=== PATIENT | female | born 1995 | race Two or more races ===

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

== ENCOUNTER 2017-03-18 14:52 | Emergency (ER) | payer OTHER ==
[2017-03-18 15:07] VITALS: BP 111/63; PULSE 87; TEMP 98.7; BMI 23.9
--- NOTE | 2017-03-18 15:38 | PDOC ---
History of Present Illness - General Chief Complaint: Cold Symptoms Stated Complaint: HEADACHES, FEVER Time Seen by Provider: 03/18/17 15:22 - History of Present Illness Initial Comments: 03/18/17 15:32 CHIEF COMPLAINT: cold symptoms HISTORY OF PRESENT ILLNESS: 21 yo F with hx of asthma presents to [facility] with coughing x 4 days. Patient reports having runny nose, congestion, and fever (Tmax 101F). Patient reports feeling "pressure in my head" and states she took Nyquil one night with little relief. Patient reports "a little sore throat" but denies nausea, vomiting, diarrhea. PAST MEDICAL HISTORY: asthma FAMILY HISTORY: Denies SOCIAL HISTORY: Denies tobacco, alcohol, illicit drug use. SURGICAL HISTORY: Denies ALLERGIES: No known drug allergies REVIEW OF SYSTEMS General/Constitutional: Fever. Denies weakness. HEENT: A little sore throat, cough with "green stuff," runny nose, congestion. Denies change in vision. Cardiovascular: Denies chest pain or shortness of breath. Respiratory: productive cough x 4 days. Denies wheezing, or hemoptysis. Gastrointestinal: Denies nausea, vomiting, diarrhea. Denies rectal Musculoskeletal: Denies joint or muscle swelling or pain. Denies neck or back pain. Skin and breasts: Denies rash or easy bruising. PHYSICAL EXAM General Appearance: Well-appearing, appropriately dressed. No apparent distress. HEENT: Nasal congestion, rhinorrhea. Post nasal drip, left pharynx mildly erythematous. NO tonsilar swelling or exudate EOMI, PERRLA. No conjunctival pallor. No photophobia, scleral icterus. Neck: Supple. Trachea midline. No tenderness, rigidity, carotid bruit, stridor , lymphadenopathy, or thyromegaly. Respiratory/Chest: Lungs CTAB. No shortness of breath, chest tenderness, respiratory distress, accessory muscle use. No crackles, rales, rhonchi, stridor , wheezing, dullness Cardiovascular: RRR. S1, S2. Gastrointestinal/Abdominal: Normal bowel sounds. Abdomen soft, non-distended. No tenderness or rebound tenderness. No organomegaly, pulsatile mass, guarding , hernia, hepatomegaly, splenomegaly. Musculoskeletal/Extremities: Normal inspection. FROM of all extremities, normal capillary refill. Pelvis Stable. No CVA tenderness. No tenderness to extremities, pedal edema, swelling, erythema or deformity. Integumentary: Appropriate color, dry, warm. 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 Fully oriented, alert. Appropriate mood/affect. Motor strength 5/5. No appreciable EOM palsy, facial droop or sensory deficit. Past History - Past History Allergies/Adverse Reactions: Allergies No Known Allergies Allergy (Verified 03/18/17 14:59) Home Medications: Ambulatory Orders Azithromycin [Zithromax Tri-Ambrocio (3 DAYS) -] 500 mg PO DAILY #3 tablet 07/07/16 Ibuprofen [Motrin -] 600 mg PO QID PRN #28 tablet 07/07/16 Acetaminophen 500 mg PO Q6H PRN #28 capsule 03/18/17 Loratadine [Claritin] 10 mg PO DAILY #7 tablet 03/18/17 Pseudoephedrine HCl [Wal-Phed D] 120 mg PO BID #14 tablet.er 03/18/17 Immunization Status Up to Date: Yes - Social History Smoking History: No Smoking Status: Never smoked Number of Cigarettes Smoked Per Day: 0 Drug Use: none *Physical Exam - Vital Signs Last Vital Signs Temp Pulse Resp BP Pulse Ox 98.7 F 87 14 111/63 100 03/18/17 14:56 03/18/17 14:56 03/18/17 14:56 03/18/17 14:56 03/18/17 14:56 Medical Decision Making - Medical Decision Making 03/18/17 15:38 21 yo F with hx of asthma presents to [facility] with coughing x 4 days. -Flu swab *DC/Admit/Observation/Transfer Diagnosis at time of Disposition: URI, acute - Discharge Dispostion Disposition: HOME Condition at time of disposition: Stable Admit: No - Prescriptions Prescriptions: Acetaminophen 500 mg PO Q6H PRN #28 capsule PRN Reason: Headache Loratadine [Claritin] 10 mg PO DAILY #7 tablet Pseudoephedrine HCl [Wal-Phed D] 120 mg PO BID #14 tablet.er - Patient Instructions Printed Discharge Instructions: DI for Viral Upper Respiratory Infection -- Adult Additional Instructions: Please take medications as prescribed. Follow up with your primary care doctor within the next week. If you develop any fever that persists despite Tylenol or Motrin, or you develop any vomiting, diarrhea, or any new or worsening symptoms, please return to the ER. - Post Discharge Activity Forms/Work/School Notes: Back to Work
== END 2017-03-18 16:10 | disposition home or self-care (01) ==
LOC: JERFT 14:52 → JER 14:52 → JERFT 16:10
DX: J06.9 Acute upper respiratory infection, unspecified (principal); B97.89 Other viral agents as the cause of diseases classified elsewhere
CPT/HCPCS: 87804; 99281-25

== ENCOUNTER 2017-04-06 20:47 | Observation (INO) | payer OTHER ==
--- NOTE | 2017-04-06 21:15 | PDOC ---
History of Present Illness <Alisha Langston - Last Filed: 04/07/17 00:08> - General History Source: Patient Exam Limitations: No Limitations - History of Present Illness Initial Comments: 04/06/17 21:43 The patient is a 21 year old female with a significant past medical history of anemia, and asthma, who presents to the ED with a near syncopal episode. Patient states she was in the kitchen when she felt dizzy and slightly hit her head. Patient then walked to the couch and felt dizzy again. Patient denies losing consciousness. Patient denies headache, fever, chills, nausea, vomiting, diarrhea. Patient denies any pain or symptoms at the moment. Patient states she only ate chicken and rice today, with a glass of water and juice. <Mat Moncada - Last Filed: 04/07/17 01:57> - General Chief Complaint: Syncope/Near Syncope Stated Complaint: FATIGUE Time Seen by Provider: 04/06/17 21:11 Past History - Past Medical History Anemia: Yes Asthma: Yes - Reproductive History (#): 0 Para: 0 Therapeutic (s) & number: No - Immunization History Immunization Up to Date: Yes - Suicide/Smoking/Psychosocial Hx Smoking Status: No Smoking History: Never smoked Have you smoked in the past 12 months: No Number of Cigarettes Smoked Daily: 0 Information on smoking cessation initiated: No Hx Alcohol Use: No Drug/Substance Use Hx: No Substance Use Type: None <Alisha Langston - Last Filed: 04/07/17 00:08> <Mat Moncada - Last Filed: 04/07/17 01:57> - Past Medical History Allergies/Adverse Reactions: Allergies Allergy/AdvReac Type Severity Reaction Status Date / Time No Known Allergies Allergy Verified 03/18/17 14:59 Home Medications: Ambulatory Orders Unobtainable [Unobtainable] 04/06/17 Review of Systems - Review of Systems Able to Perform ROS?: Yes Comments:: 04/06/17 21:43 GENERAL/CONSTITUTIONAL: No fever or chills. No weakness. HEAD, EYES, EARS, NOSE AND THROAT: No change in vision. No ear pain or discharge. No sore throat. CARDIOVASCULAR: No chest pain or shortness of breath. RESPIRATORY: No cough, wheezing, or hemoptysis. GASTROINTESTINAL: No nausea, vomiting, diarrhea or constipation. GENITOURINARY: No dysuria, frequency, or change in urination. MUSCULOSKELETAL: No joint or muscle swelling or pain. No neck or back pain. SKIN: No rash NEUROLOGIC: + dizziness. No headache, vertigo, loss of consciousness, or change in strength/sensation. ENDOCRINE: No increased thirst. No abnormal weight change. HEMATOLOGIC/LYMPHATIC: No anemia, easy bleeding, or history of blood clots. ALLERGIC/IMMUNOLOGIC: No hives or skin allergy. <Mat Moncada - Last Filed: 04/07/17 01:57> *Physical Exam - Vital Signs Last Vital Signs Temp Pulse Resp BP Pulse Ox 98.8 F 108 H 20 101/59 98 04/06/17 21:05 04/06/17 21:05 04/06/17 21:05 04/06/17 21:05 04/06/17 21:05 <Alisha Langston - Last Filed: 04/07/17 00:08> - Vital Signs Last Vital Signs Temp Pulse Resp BP Pulse Ox 98.8 F 108 H 20 101/59 98 04/06/17 21:05 04/06/17 21:05 04/06/17 21:05 04/06/17 21:05 04/06/17 21:05 - Physical Exam Comments: 04/06/17 21:44 GENERAL: Awake, alert, and fully oriented, in no acute distress HEAD: No signs of trauma EYES: PERRLA, EOMI, sclera anicteric, conjunctiva clear ENT: Auricles normal inspection, hearing grossly normal, nares patent, oropharynx clear without exudates. Moist mucosa NECK: Normal ROM, supple, no lymphadenopathy, JVD, or masses LUNGS: Breath sounds equal, clear to auscultation bilaterally. No wheezes, and no crackles HEART: Regular rate and rhythm, normal S1 and S2, no murmurs, rubs or gallops ABDOMEN: Soft, nontender, normoactive bowel sounds. No guarding, no rebound. No masses EXTREMITIES: Normal range of motion, no edema. No clubbing or cyanosis. No cords, erythema, or tenderness NEUROLOGICAL: Cranial nerves II through XII grossly intact. Normal speech, normal gait SKIN: Warm, Dry, normal turgor, no rashes or lesions noted. <Mat Moncada - Last Filed: 04/07/17 01:57> Heart Score/ECG Review - ECG Intrepretation Comment:: 04/07/17 01:57 Normal Sinus Rhythm, 86 bpm. T wave abnormality, consider anterior ischemia Abnormal ECG. <Mat Moncada - Last Filed: 04/07/17 01:57> ED Treatment Course - LABORATORY CBC & Chemistry Diagram: 04/06/17 21:50 04/06/17 21:50 <Alisha Langston - Last Filed: 04/07/17 00:08> - LABORATORY CBC & Chemistry Diagram: 04/06/17 21:50 04/06/17 21:50 - ADDITIONAL ORDERS Additional order review: Laboratory Results 04/06/17 21:30 Urine HCG, Qual Negative <Mat Moncada - Last Filed: 04/07/17 01:57> Medical Decision Making - Medical Decision Making 04/06/17 23:43 Pt comes with syncope x 2 today; Once in the kitceh and once in the living room ; Both times she fell and hit her head. Abnormal EKG RBBB 04/07/17 00:08 Pt's EKG findings are old; read by agency legal counsel as abnormal; however pt has never been admitted for further workup with holter; cardiac echo; or serial enzymes and telemetry observation. Pt requires workup now, as she fell 2 x and hit her head - though she recalls events and doesn't think that she lost consciousness, but she states that she was startled and in shock - with a concurrent abnormal EKG tracing. <Alisha Langston - Last Filed: 04/07/17 00:08> *DC/Admit/Observation/Transfer - Discharge Dispostion Admit: Yes <Alisha Langston - Last Filed: 04/07/17 00:08> - Attestations Scribe Attestion: 04/06/17 21:44 Documentation prepared by Mat Moncada, acting as medical records director for Alisha Langston MD. <Mat Moncada - Last Filed: 04/07/17 01:57> Diagnosis at time of Disposition: Syncope, Abnormal EKG, RBBB - Discharge Dispostion Condition at time of disposition: Guarded
[2017-04-06] MEDS ORDERED: SODIUM CHLORIDE 0.9% 500 ML INFUS.BAG IV ONE (21:38)
[2017-04-06 22:01] LABS: BASOPHIL 0.1 % (0-2.0); EOSINOPHIL 0.2 % (0-4.5); MCH 32.6 pg (25.7-33.7); MCHC 34.7 g/dl (32.0-36.0); NEUTROPHILS 85.4 % (42.8-82.8); PLATELET COUNT 246 K/MM3 (134-434); RDW 13.2 % (11.6-15.6); WHITE BLOOD COUNT 9.6 K/mm3 (4.0-10.0)
[2017-04-06 22:25] LABS: ALBUMIN 3.9 g/dl (3.4-5.0); ANION GAP 11 (8-16); BILIRUBIN,TOTAL 0.5 mg/dL (0.2-1.0); CALCIUM 8.8 mg/dL (8.5-10.1); CO2 25 mmol/L (21-32); CREATININE 0.8 mg/dL (0.55-1.02); GLUCOSE,RANDOM 127 mg/dL (74-106); SGPT/ALT 18 U/L (12-78); TOT PROT 7.7 g/dl (6.4-8.2)
[2017-04-06 22:28] LABS: CPK 126 IU/L (26-192); TROPONIN I < 0.02 ng/ml (0.00-0.05)
[2017-04-06 22:30] LABS: ALK PHOS 36 U/L (45-117)
[2017-04-06 22:31] LABS: SGOT/AST 16 U/L (15-37)
--- NOTE | 2017-04-07 00:06 | PN ---
Teaching Attending Note Name of Resident: Bjorn Valverde ATTENDING PHYSICIAN STATEMENT I saw and evaluated the patient. I reviewed the resident's note and discussed the case with the resident. I agree with the resident's findings and plan as documented. SUBJECTIVE: 21 yo F with pmhx of yeni who presents s/p loss of conscioussness, States she fell today and lost conciousness. Denies any lightheadedness, dizziness, or headache. NO chest pain, pressure or shortness of breath. States she has not been eating and drinking much today. States she may have hit her head, above her left eye brow, but denies any visual changes or headaches. States she lost concioussness twice, but does not know for how long. States she had no shaking and did not lose bowel or bladder function. Did not bite her tongue OBJECTIVE: Physical Exam: Vital Signs Period Temp Pulse Resp BP Sys/Bolden Pulse Ox Last 24 Hr 98.8 F 91-108 14-20 101-103/59-66 98-100 GEN: NAD, young female, resting in bed, AA0X3 HEENT: NCAT, PERRL, Throat without erythema or exudates CARD: RRR S1, S2 RESP: CTAB ABD: BSx4, NTD to palpation EXT: - C/C/E CBCD WBC 9.6 K/mm3 (4.0-10.0) 04/06/17 21:50 RBC 3.99 M/mm3 (3.60-5.2) 04/06/17 21:50 Hgb 13.0 GM/dL (10.7-15.3) D 04/06/17 21:50 Hct 37.5 % (32.4-45.2) 04/06/17 21:50 MCV 94.0 fl (80-96) 04/06/17 21:50 MCHC 34.7 g/dl (32.0-36.0) 04/06/17 21:50 RDW 13.2 % (11.6-15.6) 04/06/17 21:50 Plt Count 246 K/MM3 (134-434) 04/06/17 21:50 MPV 10.0 fl (7.5-11.1) 04/06/17 21:50 CMP Sodium 140 mmol/L (136-145) 04/06/17 21:50 Potassium 4.0 mmol/L (3.5-5.1) 04/06/17 21:50 Chloride 104 mmol/L (98-107) 04/06/17 21:50 Carbon Dioxide 25 mmol/L (21-32) 04/06/17 21:50 Anion Gap 11 (8-16) 04/06/17 21:50 BUN 14 mg/dL (7-18) D 04/06/17 21:50 Creatinine 0.8 mg/dL (0.55-1.02) 04/06/17 21:50 Creat Clearance w eGFR > 60 (>60) 04/06/17 21:50 Random Glucose 127 mg/dL (74-106) H D 04/06/17 21:50 Calcium 8.8 mg/dL (8.5-10.1) 04/06/17 21:50 Total Bilirubin 0.5 mg/dL (0.2-1.0) D 04/06/17 21:50 AST 16 U/L (15-37) D 04/06/17 21:50 ALT 18 U/L (12-78) 04/06/17 21:50 Alkaline Phosphatase 36 U/L (45-117) L D 04/06/17 21:50 Total Protein 7.7 g/dl (6.4-8.2) 04/06/17 21:50 Albumin 3.9 g/dl (3.4-5.0) 04/06/17 21:50 CARDIAC ENZYMES Creatine Kinase 126 IU/L (26-192) 04/06/17 22:05 Troponin I < 0.02 ng/ml (0.00-0.05) 04/06/17 22:05 EKGL TWI anterior leads, present on prior EKG 12/11 ASSESSMENT AND PLAN: 21 F with pmhx. of asthma who presents post loss of concioussness, being admitted for syncope 1.) Loss of Concioussness DDX: Vasovagal - STAT ortostatics - IVF 2.) DVT Ppx: - Low risk- SCDs Place in Obs-Tele
[2017-04-07] MEDS ORDERED: SODIUM CHLORIDE 1,000 ML IV SCH (01:00)
--- NOTE | 2017-04-07 01:14 | HP ---
CHIEF COMPLAINT: fainting spell PCP: pt sees an [facility] S[facility] DRIVER at [address] [place] [id number] HISTORY OF PRESENT ILLNESS: Pt is a 21 y/o F with H ED visit for syncope, anemia, and abnormal EKG who presented to ED after a syncople episode at home. Pt was home alone in the kitchen and suddenly fainted. She then got up and tried to walk to the couch but fainted again before she got there. Pt denied any symptoms of dizziness, weakness, lightheadedness, palpitations, diaphoresis. Pt denies recent nausea, vomiting, diarrhea, fever, malaise. ER course was notable for: (1) benign labs (2) EKG significant for RBBB and ant T wave inversions stable from prior EKG (3) Recent Travel: denies PAST MEDICAL HISTORY: syncope, anemia, childhood asthma, abnormal EKG PAST SURGICAL HISTORY: denies Social History: Smoking: hookah daily Alcohol: occasionally at parties. Cannot quantify Drugs: denies Sexual Hx: Pt is sexually active and uses barrier contraception inconsistently. Pt was counselled. Family History: denies Allergies No Known Allergies Allergy (Verified 03/18/17 14:59) HOME MEDICATIONS: Home Medications Medication Instructions Recorded Unobtainable [Unobtainable] 04/06/17 REVIEW OF SYSTEMS CONSTITUTIONAL: Absent: fever, chills, diaphoresis, generalized weakness, malaise, loss of appetite, weight change HEENT: Absent: rhinorrhea, nasal congestion, throat pain, throat swelling, difficulty swallowing, mouth swelling, ear pain, eye pain, visual changes CARDIOVASCULAR: syncope Absent: chest pain, , palpitations, irregular heart rate, lightheadedness, peripheral edema RESPIRATORY: Absent: cough, shortness of breath, dyspnea with exertion, orthopnea, wheezing, stridor, hemoptysis GASTROINTESTINAL: Absent: abdominal pain, abdominal distension, nausea, vomiting, diarrhea, constipation, melena, hematochezia GENITOURINARY: Absent: dysuria, frequency, urgency, hesitancy, hematuria, flank pain, genital pain MUSCULOSKELETAL: Absent: myalgia, arthralgia, joint swelling, back pain, neck pain SKIN: Absent: rash, itching, pallor HEMATOLOGIC/IMMUNOLOGIC: Absent: easy bleeding, easy bruising, lymphadenopathy, frequent infections ENDOCRINE: Absent: unexplained weight gain, unexplained weight loss, heat intolerance, cold intolerance NEUROLOGIC: Absent: headache, focal weakness or paresthesias, dizziness, unsteady gait, seizure, mental status changes, bladder or bowel incontinence PSYCHIATRIC: Absent: anxiety, depression, suicidal or homicidal ideation, hallucinations. PHYSICAL EXAMINATION GENERAL: Awake, alert, and fully oriented, in no acute distress. HEAD: Normal with no signs of trauma. EYES: Pupils equal, round and reactive to light, extraocular movements intact, sclera anicteric, conjunctiva clear. No lid lag. No nystagmus. EARS, NOSE, THROAT: oropharynx clear without exudates. Moist mucous membranes. NECK: Normal range of motion, supple without lymphadenopathy, JVD, or masses. No bruits. LUNGS: Breath sounds equal, clear to auscultation bilaterally. No wheezes, and no crackles. No accessory muscle use. HEART: Regular rate and rhythm, normal S1 and S2 without murmur, rub or gallop. ABDOMEN: Soft, nontender, not distended, normoactive bowel sounds, no guarding, no rebound, no masses. No hepatomegaly or splenomegaly. MUSCULOSKELETAL: Normal range of motion at all joints. No bony deformities or tenderness. No CVA tenderness. UPPER EXTREMITIES: 2+ pulses, warm, well-perfused. No cyanosis. No clubbing. No peripheral edema. LOWER EXTREMITIES: 2+ pulses, warm, well-perfused. No calf tenderness. No peripheral edema. NEUROLOGICAL: Cranial nerves II-XII intact. Normal speech. Strength 5/5 throughout. Sensation intact throughout. PSYCHIATRIC: Cooperative. Good eye contact. Appropriate mood and affect. SKIN: Warm, dry, normal turgor, no rashes or lesions noted, normal capillary refill. ASSESSMENT/PLAN: This is a 21 F with PMH syncope, anemia, and abnormal EKG who presented to ED after a syncople episode. She is being placed on Tele/Obs for monitoring. #Syncope -Most likely vasovagal -Pt reports having had a syncople event in the past due to "low blood pressure" -Orthostatics -echo/carotid workup not indicated -NS -repeat EKG in am #Abnormal EKG -RBBB with anterior T wave inversions -stable compared to previous #FEN -NS @ 75 -lytes wnl -reg diet #Dispo -Tele/Obs for monitoring Bjorn Valverde MD PGY-1 case discussed with senior and attending Visit type - Emergency Visit Emergency Visit: Yes ED Registration Date: 04/07/17 Care time: The patient presented to the Emergency Department on the above date and was hospitalized for further evaluation of their emergent condition. - New Patient This patient is new to me today: Yes Date on this admission: 04/08/17 - Critical Care Critical Care patient: No
[2017-04-07 04:52] VITALS: BMI 24.3
[2017-04-07] MEDS: HEPARIN NA (PORCINE) 5,000 UNITS/ML 1ML VIAL SQ SCH ×2 (05:32→15:02)
--- NOTE | 2017-04-07 08:09 | DS ---
Physical Exam: SUBJECTIVE: Patient seen and examined. Feels well, voices no complaints. OBJECTIVE: Vital Signs Period Temp Pulse Resp BP Sys/Bolden Pulse Ox Last 24 Hr 98.0 F-98.5 F 77-91 16-18 101-124/59-70 95-99 PHYSICAL EXAM GENERAL: The patient is awake, alert, and fully oriented, in no acute distress. HEAD: Normal with no signs of trauma. EYES: PERRL, extraocular movements intact, sclera anicteric, conjunctiva clear. ENT: Ears normal, nares patent, oropharynx clear without exudates, moist mucous membranes. NECK: Trachea midline, full range of motion, supple. LUNGS: Breath sounds equal, clear to auscultation bilaterally, no wheezes, no crackles, no accessory muscle use. HEART: Regular rate and rhythm, S1, S2 without murmur, rub or gallop. ABDOMEN: Soft, nontender, nondistended, normoactive bowel sounds, no guarding, no rebound, no hepatosplenomegaly, no masses. EXTREMITIES: 2+ pulses, warm, well-perfused, no edema. NEUROLOGICAL: Cranial nerves II through XII grossly intact. Normal speech, gait not observed. LABS HOSPITAL COURSE: Date of Admission:04/07/17 Date of Discharge: 04/07/17 Pre hospital course 21 year-old female with a PMH significant for asthma who smokes hookah daily. She was home alone standing in her kitchen and suddenly fainted. She got up and tried to walk to the couch but fainted again. She does not know how long she was unconscious and does not know if she hit her head. Patient acknowledged smoking that day and also having little to eat or drink. She admits that smoking hookah sometimes makes her dizzy. Patient denied chest pain, palpitations, SOB, or [place]. Denies headache, fever, sweats, chills. Denies abdominal pain, n/v/d. She was alert immediately upon gaining consciousness, aware of her surroundings. She was not incontinent and did not bit her tongue. ED course 1. ECG: RBBB and T wave inversions seen on previous ECG November 2015 2. Vital signs stable, MAP>75 3. IV fluids. Subsequent hospital course Echo showed LV normal; RV normal; no valvular pathology. Patient felt better after IV fluids. Syncope most likely a vasovagal episode due to poor PO intake. Seen and evaluated by cardiology. No further cardiac workup is indicated. Minutes to complete discharge: 35 Discharge Summary Reason For Visit: SYNCOPE ABNORMAL EKG RBBB Current Active Problems Abnormal EKG (Acute) RBBB (Acute) Syncope (Acute) Condition: Guarded - Home Medications Comprehensive Discharge Medication List: Ambulatory Orders Unobtainable [Unobtainable] 04/06/17 This patient is new to me today: Yes Date on this admission: 04/07/17 Emergency Visit: Yes ED Registration Date: 04/07/17 Care time: The patient presented to the Emergency Department on the above date and was hospitalized for further evaluation of their emergent condition. Critical Care patient: No - Discharge Referral Referred to [facility] No
--- NOTE | 2017-04-07 10:01 | EKG ---
Test Reason : Blood Pressure : / mmHG Vent. Rate : 098 BPM Atrial Rate : 098 BPM P-R Int : 156 ms QRS Dur : 090 ms QT Int : 350 ms P-R-T Axes : 074 080 056 degrees QTc Int : 446 ms NORMAL SINUS RHYTHM POSSIBLE LEFT ATRIAL ENLARGEMENT RSR' OR QR PATTERN IN V1 SUGGESTS RIGHT VENTRICULAR CONDUCTION DELAY ABNORMAL ECG WHEN COMPARED WITH ECG OF 12-DEC-2015 17:55, VENT. RATE HAS INCREASED BY 33 BPM Confirmed by CARY DUMONT MD ([id number]) on 04/07/2017 10:01:17 AM Referred By: Confirmed By:CARY DUMONT MD
--- NOTE | 2017-04-07 12:33 | CON.CARD ---
Consult Consult Specialty:: Cardiology Referred by:: Hospitalist Medicine Reason for Consultation:: Syncope - History of Present Illness Chief Complaint: Syncope History of Present Illness: 21 yo F with pmhx of asthma who presented after syncopal episode, denies prodromal sxs of lightheadedness, dizziness, headache, chest pain, pressure, palpitations or shortness of breath. States she has not been eating and drinking much today. States she may have hit her head, above her left eye brow , but denies any visual changes or headaches. States she lost conciousness twice , but does not know for how long. States she had no shaking and did not lose bowel or bladder function. Did not bite her tongue, feels improved post- hydration, no events on telemetry. - History Source History Provided By: Patient Limitations to Obtaining History: No Limitations - Past Medical History ...LMP: 03/16/17 ...LMP Comment: lasted 2 weeks ...: No - Alcohol/Substance Use Hx Alcohol Use: No - Smoking History Smoking history: Never smoked Have you smoked in the past 12 months: No Aproximately how many cigarettes per day: 0 Home Medications - Allergies Allergies/Adverse Reactions: Allergies Allergy/AdvReac Type Severity Reaction Status Date / Time No Known Allergies Allergy Verified 03/18/17 14:59 - Home Medications Home Medications: Ambulatory Orders Unobtainable [Unobtainable] 04/06/17 Review of Systems - Review of Systems Neurological: reports: Syncope Vital Signs: Vital Signs Temperature 98.6 F 04/07/17 10:00 Pulse Rate 86 04/07/17 10:00 Respiratory Rate 18 04/07/17 10:00 Blood Pressure 113/57 04/07/17 10:00 O2 Sat by Pulse Oximetry (%) 95 04/07/17 02:51 Constitutional: Yes: No Distress, Calm, Thin Neck: Yes: Supple Respiratory: Yes: Regular, CTA Bilaterally Gastrointestinal: Yes: Normal Bowel Sounds, Soft Cardiovascular: Yes: Regular Rate and Rhythm JVD: No Carotid Bruit: No Heart Sounds: Yes: S1, S2 Murmur: Yes: Systolic Murmur, Grade 1 Edema: No - Other Data NSR @ 98 IRBBB with nonspec T wave changes Tele: No events Imaging - Results Chest X-ray: Report Reviewed (NAD) Problem List - Problems (1) Abnormal EKG Code(s): R94.31 - ABNORMAL ELECTROCARDIOGRAM [ECG] [EKG] (2) Syncope Code(s): R55 - SYNCOPE AND COLLAPSE Qualifiers: Syncope type: vasovagal syncope Qualified Code(s): R55 - Syncope and collapse; R55 - Syncope and collapse (3) Incomplete right bundle branch block Code(s): I45.10 - UNSPECIFIED RIGHT BUNDLE-BRANCH BLOCK Assessment/Plan 1. Syncope likely vasovagal etiology 2. Abnormal ECG P:1. Echocardiogram to assess ventricular and valve fxn 2. Encourage hydration, addressed abortive maneuvers once prodromal sxs experienced 3. Likely d/c later in day 4. Thank you for consultative opportunity
[2017-04-07 15:13] VITALS: BP 113/58; PULSE 87; TEMP 98.1
--- NOTE | 2017-04-08 07:28 | EKG ---
Test Reason : Blood Pressure : / mmHG Vent. Rate : 086 BPM Atrial Rate : 086 BPM P-R Int : 166 ms QRS Dur : 086 ms QT Int : 366 ms P-R-T Axes : 071 073 048 degrees QTc Int : 437 ms NORMAL SINUS RHYTHM RSR' OR QR PATTERN IN V1 SUGGESTS RIGHT VENTRICULAR CONDUCTION DELAY T WAVE ABNORMALITY, CONSIDER ANTERIOR ISCHEMIA ABNORMAL ECG WHEN COMPARED WITH ECG OF 06-APR-2017 21:45, NO SIGNIFICANT CHANGE WAS FOUND Confirmed by CARY DUMONT MD ([id number]) on 04/07/2017 9:59:47 AM Referred By: Confirmed By:CARY DUMONT MD
== END 2017-04-07 18:15 | disposition home or self-care (01) ==
LOC: JER 20:47 → JERBED 04-07 00:12 → J4S 04-07 02:21
PROVIDERS: ADMIT Internal Medicine; ATTEND Nurse Practitioner Acute Care
PROC: 3E013GC Introduction of Other Therapeutic Substance into Subcutaneous Tissue, Percutaneous Approach (ICD-10-PCS; principal; 2017-04-07)
PROC: 3E0337Z Introduction of Electrolytic and Water Balance Substance into Peripheral Vein, Percutaneous Approach (ICD-10-PCS; 2017-04-07)
DX: R55 Syncope and collapse (principal); R94.31 Abnormal electrocardiogram [ECG] [EKG]; I45.10 Unspecified right bundle-branch block; D64.9 Anemia, unspecified; J45.909 Unspecified asthma, uncomplicated
CPT/HCPCS: 36415; 71020-TC; 80053; 82550; 84484; 84703; 85025; 93005; 93010; 93306-TC; 96372; 99284-25; G0378; J1644

== ENCOUNTER 2017-12-09 04:17 | Emergency (ER) | payer OTHER ==
[2017-12-09 04:31] VITALS: BMI 22.8
--- NOTE | 2017-12-09 04:47 | PDOC ---
History of Present Illness - General Chief Complaint: Cold Symptoms Stated Complaint: HOT/COLD CHILLS Time Seen by Provider: 12/09/17 04:47 History Source: Patient - History of Present Illness Initial Comments: 12/09/17 05:09 22 year old female with nasal congestion cough, and fever with chills x 3 days. patient reports that she took advil Past History - Past Medical History Allergies/Adverse Reactions: Allergies Allergy/AdvReac Type Severity Reaction Status Date / Time No Known Allergies Allergy Verified 12/09/17 04:31 Home Medications: Ambulatory Orders Amoxicillin/Potassium Clav [Augmentin 875-125 Tablet] 1 each PO BID #20 tablet 12/09/17 Fluticasone Prop 0.05% Nasal [Flonase -] 1 - 2 spray NS BID #1 spray.pump Anemia: Yes Asthma: Yes Cancer: No Cardiac Disorders: No CVA: No COPD: No CHF: No Dementia: No Diabetes: No GI Disorders: No Disorders: No HTN: No Hypercholesterolemia: No Liver Disease: No Seizures: No Thyroid Disease: No - Reproductive History (#): 0 Para: 0 Therapeutic (s) & number: No - Immunization History Immunization Up to Date: Yes - Suicide/Smoking/Psychosocial Hx Smoking Status: No Smoking History: Never smoked Have you smoked in the past 12 months: No Number of Cigarettes Smoked Daily: 0 Information on smoking cessation initiated: No Hx Alcohol Use: No Drug/Substance Use Hx: No Substance Use Type: None Review of Systems - Review of Systems Able to Perform ROS?: Yes Is the patient limited Indonesian proficient: No Constitutional: Yes: Fever HEENTM: Yes: Nose Congestion Respiratory: Yes: Cough. No: Symptoms reported, See HPI, Orthopnea, Shortness of Breath, SOB with Exertion, SOB at Rest, Stridor, Wheezing, Productive cough, Hemoptysis, Other ABD/GI: No: Symptoms Reported, See HPI, Abdominal Distended, Abd. Pain w/ defecation, Blood Streaked Bowels, Constipated, Diarrhea, Difficulty Swallowing , Nausea, Poor Appetite, Poor Fluid Intake, Rectal Bleeding, Vomiting, Indigestion, Abdominal cramping, Tarry Stools, Other *Physical Exam - Vital Signs Last Vital Signs Temp Pulse Resp BP Pulse Ox 99.2 F 110 H 22 115/78 99 12/09/17 04:29 12/09/17 04:29 12/09/17 04:29 12/09/17 04:29 12/09/17 04:29 - Physical Exam General Appearance: Yes: Appropriately Dressed HEENT: positive: TM Erythema (with small amount of fluids), Other (+ frontal sinus tenderness b/l) Respiratory/Chest: positive: Rhonchi Gastrointestinal/Abdominal: positive: Normal Bowel Sounds, Soft Extremity: positive: Normal Capillary Refill, Normal Inspection Integumentary: positive: Normal Color, Dry, Warm Neurologic: positive: Fully Oriented, Alert *DC/Admit/Observation/Transfer Diagnosis at time of Disposition: Bronchitis - Discharge Dispostion Disposition: HOME Condition at time of disposition: Fair - Prescriptions Prescriptions: Amoxicillin/Potassium Clav [Augmentin 875-125 Tablet] 1 each PO BID #20 tablet Fluticasone Prop 0.05% Nasal [Flonase -] 1 - 2 spray NS BID #1 spray.pump - Referrals - Patient Instructions Printed Discharge Instructions: DI for Acute Bronchitis Additional Instructions: drink plenty of fluids take Augmentin as prescribed, take ibuprofen every 6 hours as needed for fever and bodyaches. Use Flonase as directed. follow up with your doctor as soon as possible, - Post Discharge Activity Forms/Work/School Notes: Back to Work
[2017-12-09] MEDS ORDERED: ACETAMINOPHEN 325 MG TABLET (FP) PO ONE (05:03)
[2017-12-09] MEDS ORDERED: AMOX TR/POT CLAV 875MG/125MG TABLETS (FP) PO ONE (05:09)
[2017-12-09] MEDS ORDERED: AMOX TR/POT CLAV 875MG/125MG TABLETS (FP) ONE (05:14)
[2017-12-09] MEDS ORDERED: ACETAMINOPHEN 325 MG TABLET (FP) ONE (05:14)
--- NOTE | 2017-12-09 05:50 | PDOC ---
*Physical Exam - Vital Signs Last Vital Signs Temp Pulse Resp BP Pulse Ox 99.2 F 110 H 22 115/78 99 12/09/17 04:29 12/09/17 04:29 12/09/17 04:29 12/09/17 04:29 12/09/17 04:29 ED Treatment Course - Medications Given in the ED: ED Medications Discontinued Medications Generic Name Dose Route Start Last Admin Trade Name Nathaniel PRN Reason Stop Dose Admin Acetaminophen 650 mg 12/09/17 05:03 12/09/17 05:17 Tylenol - PO 12/09/17 05:04 650 mg ONCE ONE Administration Amoxicillin/Clavulanate Potassium 1 tab 12/09/17 05:09 12/09/17 05:17 Augmentin - 875mg Tablet PO 12/09/17 05:10 1 tab ONCE ONE Administration Medical Decision Making - Medical Decision Making 12/09/17 05:50 agree with care from FRANCISCO Jones *DC/Admit/Observation/Transfer Diagnosis at time of Disposition: Bronchitis - Discharge Dispostion Disposition: HOME Condition at time of disposition: Fair - Prescriptions Prescriptions: Amoxicillin/Potassium Clav [Augmentin 875-125 Tablet] 1 each PO BID #20 tablet Fluticasone Prop 0.05% Nasal [Flonase -] 1 - 2 spray NS BID #1 spray.pump - Referrals - Patient Instructions Printed Discharge Instructions: DI for Acute Bronchitis Additional Instructions: drink plenty of fluids take Augmentin as prescribed, take ibuprofen every 6 hours as needed for fever and bodyaches. Use Flonase as directed. follow up with your doctor as soon as possible, - Post Discharge Activity Forms/Work/School Notes: Back to Work
[2017-12-09 06:25] VITALS: BP 112/73; PULSE 88; TEMP 98.1
== END 2017-12-09 06:30 | disposition home or self-care (01) ==
LOC: JER 04:17
DX: J40 Bronchitis, not specified as acute or chronic (principal); J45.909 Unspecified asthma, uncomplicated; Z86.2 Personal history of diseases of the blood and blood-forming organs and certain disorders involving the immune mechanism
CPT/HCPCS: 99282-25

== ENCOUNTER 2018-09-01 05:09 | Emergency (ER) | payer OTHER ==
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
[2018-09-01 05:31] VITALS: BP 100/56; PULSE 82; TEMP 97.9; BMI 24.1
--- NOTE | 2018-09-01 05:34 | PDOC ---
*Physical Exam - Vital Signs Last Vital Signs Temp Pulse Resp BP Pulse Ox 97.9 F 82 18 100/56 L 100 09/01/18 05:09 09/01/18 05:09 09/01/18 05:09 09/01/18 05:09 09/01/18 05:09 Medical Decision Making - Medical Decision Making 09/01/18 05:33 Patient seen by the advanced practice provider under my direct supervision. Ancillary testing reviewed as necessary. I agree with plan as outlined by the advanced practice provider. *DC/Admit/Observation/Transfer Diagnosis at time of Disposition: Head injury Qualifiers: Encounter type: initial encounter Qualified Code(s): S09.90XA - Unspecified injury of head, initial encounter Concussion Qualifiers: Encounter type: initial encounter Loss of consciousness presence/duration: without LOC Qualified Code(s): S06.0X0A - Concussion without loss of consciousness, initial encounter - Discharge Dispostion Condition at time of disposition: Fair - Referrals Referrals: Wang Eddy MD [Staff Physician] - Gloria Cole [Primary Care Provider] - - Patient Instructions Printed Discharge Instructions: DI for Closed Head Injury Additional Instructions: rest and relax as much as possible follow up with a neurologist. call today for an appointment Additional Instructions: * Please call your personal physician to report your Emergency Department visit and to report your progress, if any. * If there is no improvement in symptoms in 2 days call your physician. * Return to the Emergency Department for any worsening symptoms. - Post Discharge Activity Forms/Work/School Notes: Back to Work
[2018-09-01] MEDS ORDERED: DIPHTH,PERTUSS(ACELL),TET 0.5 ML DISP.SYRIN IM ONE ×2 (05:42→05:54)
[2018-09-01] MEDS ORDERED: IBUPROFEN 400 MG TABLET (FP) PO ONE ×2 (06:29→06:32)
== END 2018-09-01 06:43 | disposition home or self-care (01) ==
LOC: JER 05:09
PROC: 3E0234Z Introduction of Serum, Toxoid and Vaccine into Muscle, Percutaneous Approach (ICD-10-PCS; principal; 2018-09-01)
DX: S06.0X0A Concussion without loss of consciousness, initial encounter (principal); W17.89XA Other fall from one level to another, initial encounter; Y93.89 Activity, other specified; Y92.414 Local residential or business street as the place of occurrence of the external cause; Y99.8 Other external cause status
CPT/HCPCS: 70450-TC; 72125-TC; 84703; 90471; 90715; 99281-25

== ENCOUNTER 2019-03-29 17:59 | Emergency (ER) | payer OTHER ==
--- NOTE | 2019-03-29 18:11 | PDOC ---
Rapid Medical Evaluation Time Seen by Provider: 03/29/19 18:09 Medical Evaluation: Allergies Allergy/AdvReac Type Severity Reaction Status Date / Time No Known Allergies Allergy Verified 09/01/18 05:32 03/29/19 18:09 I have performed a brief in-person evaluation of this patient. The patient presents with a chief complaint of: Lower abdominal-pelvic pain. No burning/pain on urination, no new vaginal discharge, no fever/chills, no NVD. Unknown I have ordered the following: UCG, chlamydia/gonorrhea The patient will proceed to the ED for further evaluation. Discharge Disposition - Diagnosis Pelvic pain - Referrals - Patient Instructions - Post Discharge Activity
[2019-03-29 18:12] VITALS: BP 94/62; PULSE 96; TEMP 98.2; BMI 24.5
[2019-03-29] MEDS ORDERED: AZITHROMYCIN 250 MG TABLET PO ONE (19:02)
--- NOTE | 2019-03-29 19:05 | PDOC ---
History of Present Illness - General Chief Complaint: Pain Stated Complaint: ABDOMINAL PAIN Time Seen by Provider: 03/29/19 18:09 History Source: Patient - History of Present Illness Timing/Duration: reports: changing over time Abdominal Pain Onset Location: reports: suprapubic Past History - Past Medical History Allergies/Adverse Reactions: Allergies Allergy/AdvReac Type Severity Reaction Status Date / Time No Known Allergies Allergy Verified 09/01/18 05:32 Home Medications: Ambulatory Orders Ibuprofen 400 mg PO QID #20 tablet 09/01/18 Doxycycline Hyclate 100 mg PO BID #28 tablet 03/29/19 Ibuprofen [Motrin -] 600 mg PO QID #28 tablet 03/29/19 metroNIDAZOLE [Flagyl -] 500 mg PO DAILY #28 tablet 03/29/19 Anemia: Yes Asthma: Yes Cancer: No Cardiac Disorders: No CVA: No COPD: No CHF: No Dementia: No Diabetes: No GI Disorders: No Disorders: No HTN: No Hypercholesterolemia: No Liver Disease: No Seizures: No Thyroid Disease: No - Reproductive History (#): 0 Para: 0 Therapeutic (s) & number: No - Immunization History TDAP Vaccination: Yes Immunization Up to Date: Yes - Psycho Social/Smoking Cessation Hx Smoking Status: No Smoking History: Never smoked Have you smoked in the past 12 months: No Number of Cigarettes Smoked Daily: 0 Hx Alcohol Use: No Drug/Substance Use Hx: No Substance Use Type: None Review of Systems - Review of Systems Constitutional: No: Chills, Fever ABD/GI: Yes: Nausea. No: Vomiting : Yes: Discharge. No: Burning, Dysuria, Flank Pain, Hematuria, Lesions *Physical Exam - Vital Signs Last Vital Signs Temp Pulse Resp BP Pulse Ox 98.2 F 96 H 16 94/62 100 03/29/19 18:09 03/29/19 18:09 03/29/19 18:09 03/29/19 18:09 03/29/19 18:09 - Physical Exam General Appearance: Yes: Appropriately Dressed. No: Apparent Distress HEENT: positive: Normal Voice Neck: positive: Supple Respiratory/Chest: negative: Respiratory Distress Female Pelvic Exam: positive: normal external exam, cervical os closed, discharge (small amount of thin, white discharge w/ ? fishy odor detected), adnexal tenderness (on the R). negative: CMT, lesions, vaginal bleeding Gastrointestinal/Abdominal: positive: Normal Bowel Sounds, Tender (minimal to R suprapubic area), Soft. negative: Distended, Guarding, Rebound Musculoskeletal: negative: CVA Tenderness Integumentary: positive: Dry, Warm Neurologic: positive: Fully Oriented, Alert, Normal Mood/Affect Medical Decision Making - Medical Decision Making 03/29/19 18:57 23-year-old female, no significant history, here with dyspareunia w/ vaginal discharge. Patient states she developed severe R sided pelvic pain last night immediately following sexual intercourse that has since sig improved but still present. States pain was so severe last night she had to discontinue intercourse. Also reports thick white vaginal discharge w/ ? odor, no itching. Had nausea last night that has since resolved. No vomiting, fever, chills, dysuria, frequency or hematuria. Denies history of STD or new sexual partners. Sexually active with longtime male partner. No h/o ovarian cysts See exam Possible PID, unlikely torsion or UTI, no ttp to RLQ No fever or vomiting Well romario and in NAD w/ minimal ttp to R pelvis and mild R adnexal ttp on exam Upreg neg, UA w/ trace LE, 12 wbc and >600 meg, will send off ucx, no dysuria at this time -pain control -empirical abx including, will add flagyl given ? foul odor to discharge -will f/u on results Discharge - Discharge Information Problems reviewed: Yes Clinical Impression/Diagnosis: Dyspareunia, Vaginal discharge Condition: Good Disposition: HOME - Additional Discharge Information Prescriptions: Doxycycline Hyclate 100 mg PO BID #28 tablet Ibuprofen [Motrin -] 600 mg PO QID #28 tablet metroNIDAZOLE [Flagyl -] 500 mg PO DAILY #28 tablet - Follow up/Referral - Patient Discharge Instructions Patient Printed Discharge Instructions: Pelvic Inflammatory Disease Additional Instructions: Based on your symptoms, we have treated you for presumed pelvic inflammatory disorder which is a disorder that affects your pelvic organs and is most commonly caused by STDs such as gonorrhea and chlamydia. Bacterial vaginosis and other organisms have also been known to cause PID We sent STD cultures that would take 3 to 5 days to come back. We will call you if any results are positive, otherwise you can call us for results in 3 to 5 days at [phone] In the meantime take medications as directed and if symptoms worsen, return to ER immediately - Post Discharge Activity
[2019-03-29 19:16] LABS: EPI CELLS 29.3 /HPF (0-5/HPF); HYALINE CASTS 19 /lpf (0-8); PH,URINE 6.5 (5.0-8.0); URINE APPEARANCE CLOUDY; URINE BACTERIA 600.7 /hpf (NEGATIVE); URINE BILIRUBIN NEGATIVE (NEGATIVE); URINE COLOR YELLOW; URINE GLUCOSE (UA) NEGATIVE (NEGATIVE); URINE KETONE TRACE (NEGATIVE); URINE LEUK ESTERASE TRACE (NEGATIVE); URINE NITRITE NEGATIVE (NEGATIVE); URINE PROTEIN TRACE (NEGATIVE); URINE RBC 1 /hpf (0-4); URINE UROBILINOGEN 0.2 mg/dL (0.2-1.0); URINE WBC 12 /hpf (0-5)
[2019-03-29] MEDS ORDERED: AZITHROMYCIN 250 MG TABLET ONE (19:40)
[2019-03-29] MEDS ORDERED: LIDOCAINE HCL 1%, 10 MG/ML (20ML VIAL) ONE (19:43)
== END 2019-03-29 19:52 | disposition home or self-care (01) ==
LOC: JERFT 17:59
DX: N94.10 Unspecified dyspareunia (principal); N89.8 Other specified noninflammatory disorders of vagina
CPT/HCPCS: 36415; 81003; 84703; 87086; 87491; 87591; 96372; 99281-25

== ENCOUNTER 2019-08-06 16:30 | Emergency (ER) | payer OTHER ==
--- NOTE | 2019-08-06 16:50 | PDOC ---
Rapid Medical Evaluation Time Seen by Provider: 08/06/19 16:39 Medical Evaluation: Allergies Allergy/AdvReac Type Severity Reaction Status Date / Time No Known Allergies Allergy Verified 09/01/18 05:32 08/06/19 16:39 CC: rash to arms x3 days PE: fine blanchable scattered rash to left forearm. Orders: nothing Patient will proceed to ED for evaluation. Discharge Disposition - Diagnosis Rash - Referrals Referrals: Shana Durand [Primary Care Provider] - - Patient Instructions - Post Discharge Activity
[2019-08-06 16:54] VITALS: BP 98/62; PULSE 85; TEMP 98.6; BMI 22.6
[2019-08-06] MEDS ORDERED: FAMOTIDINE 20 MG TABLET PO ONE (17:06)
[2019-08-06] MEDS ORDERED: predniSONE 20 MG TABLET (UD) PO ONE (17:06)
[2019-08-06] MEDS ORDERED: FAMOTIDINE 20 MG TABLET ONE (17:13)
[2019-08-06] MEDS ORDERED: predniSONE 20 MG TABLET (UD) ONE (17:13)
--- NOTE | 2019-08-06 17:13 | PDOC ---
History of Present Illness - General Chief Complaint: Rash Stated Complaint: Rash Time Seen by Provider: 08/06/19 16:39 History Source: Patient Exam Limitations: No Limitations - History of Present Illness Initial Comments: 08/06/19 17:06 Patient is a 23-year-old female who presents to the ED with a rash to her bilateral forearms and the inside of her right thigh that started 3 days ago. She states the rash first started on her left forearm and then today she noticed it on her right forearm. She also noticed that on the inside of her right thigh. She denies any fevers or chills. She denies any new contacts, detergents, soaps, foods or medications. The patient states the rash is itchy. She has not taken anything for it. She denies any past medical history or allergies to medications. Past History - Past Medical History Allergies/Adverse Reactions: Allergies Allergy/AdvReac Type Severity Reaction Status Date / Time No Known Allergies Allergy Verified 08/06/19 16:54 Home Medications: Ambulatory Orders Ibuprofen 400 mg PO QID #20 tablet 09/01/18 Doxycycline Hyclate 100 mg PO BID #28 tablet 03/29/19 Ibuprofen [Motrin -] 600 mg PO QID #28 tablet 03/29/19 metroNIDAZOLE [Flagyl -] 500 mg PO DAILY #28 tablet 03/29/19 Diphenhydramine [Benadryl -] 50 mg PO TID PRN #21 capsule 08/06/19 predniSONE [Deltasone -] 60 mg PO DAILY #12 tablet 08/06/19 Anemia: Yes Asthma: Yes Cancer: No Cardiac Disorders: No CVA: No COPD: No CHF: No Dementia: No Diabetes: No GI Disorders: No Disorders: No HTN: No Hypercholesterolemia: No Liver Disease: No Seizures: No Thyroid Disease: No - Reproductive History (#): 0 Para: 0 Therapeutic (s) & number: No - Immunization History TDAP Vaccination: Yes Immunization Up to Date: Yes - Psycho Social/Smoking Cessation Hx Smoking Status: No Smoking History: Never smoked Have you smoked in the past 12 months: No Number of Cigarettes Smoked Daily: 0 Information on smoking cessation initiated: No Hx Alcohol Use: No Drug/Substance Use Hx: No Substance Use Type: None Review of Systems - Review of Systems Comments:: 08/06/19 17:08 - Review of Systems Able to Perform ROS?: Yes Constitutional: No: Fever, Chills, Loss of Appetite, Night Sweats, Weakness HEENTM: No: Eye Pain, Vision changes, Ear Pain, Throat Pain, Throat Swelling, Mouth Pain, Difficulty Swallowing Respiratory: No: Cough, Shortness of Breath, Wheezing, Sputum Production Cardiac (ROS): No: Chest Pain, Chest Tightness, Palpitations, Irregular Heart Beat, Edema ABD/GI: No: Nausea, Vomiting, Abdominal Pain, Diarrhea Musculoskeletal: No: Muscle Pain, Back Pain, Joint Pain, Muscle Weakness, Neck Pain Integumentary: No: Lesions; positive: Rash Neurological: No: Headache, Numbness, Tingling, Weakness, Speech Difficulties *Physical Exam - Vital Signs Last Vital Signs Temp Pulse Resp BP Pulse Ox 98.6 F 85 18 98/62 100 08/06/19 16:51 08/06/19 16:51 08/06/19 16:51 08/06/19 16:51 08/06/19 16:51 - Physical Exam 08/06/19 17:08 - Physical Exam General Appearance: Nourished, Appropriately Dressed, No Distress HEENT: EOMI, Normal Voice, No Pharyngeal Erythema, No Muffled/Hoarse voice, No Nasal Congestion, No Rhinorrhea, Hearing Grossly Normal, TMs Normal, No TM Bulging, No TM Dullness, No TM Erythema Neck: Supple, No Lymphadenopathy (R), No Lymphadenopathy (L), No Rigidity, No Decreased range of motion Respiratory/Chest: Lungs Clear, Normal Breath Sounds. No Respiratory Distress, No Accessory Muscle Use, no stridor Cardiovascular: Regular Rhythm, Regular Rate, S1, S2 Gastrointestinal/Abdominal: Normal Bowel Sounds, Soft. Non-tender, No Guarding , No Rebound, No Rigidity Musculoskeletal: Normal Inspection. No Decreased Range of Motion Extremity: Normal Capillary Refill, Normal Inspection Integumentary: Normal Color, Dry. Bilateral forearms volar aspect with diffuse maculopapular rash consistent with hives. Similar rash on the medial aspect of the right thigh but lesions are slightly larger. No tenderness palpation. No evidence of cellulitis. 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 The patient has been made aware that her rash appears to be hives. Plan: -Pepcid ordered for antihistamine as the patient is driving -Prednisone ordered -We will discharge the patient with a prescription for Benadryl and prednisone. She should follow-up with her primary doctor within 1 to 2 days for repeat evaluation. If her symptoms persist she may be required to see a melter supervisor open hearth furnace for further evaluation. She understands and agrees with this treatment plan and she is stable for discharge. Discharge - Discharge Information Problems reviewed: Yes Clinical Impression/Diagnosis: Rash, Urticaria Condition: Stable Disposition: HOME - Additional Discharge Information Prescriptions: Diphenhydramine [Benadryl -] 50 mg PO TID PRN #21 capsule PRN Reason: itching predniSONE [Deltasone -] 60 mg PO DAILY #12 tablet - Follow up/Referral Referrals: Shana Durand [Primary Care Provider] - 2 Days - Patient Discharge Instructions Patient Printed Discharge Instructions: DI for Hives Additional Instructions: Take the prednisone as prescribed and start tomorrow as your first dose was given to you today in the emergency department. Take the Benadryl as needed for the rash and itching. Be sure to follow-up with your primary doctor within 2 to 3 days for repeat evaluation. If your rash persists you may be required to see a melter supervisor open hearth furnace. - Post Discharge Activity Work/Back to School Note: Back to Work
== END 2019-08-06 17:16 | disposition home or self-care (01) ==
LOC: JERFT 16:30
DX: L50.8 Other urticaria (principal); J45.909 Unspecified asthma, uncomplicated; D64.9 Anemia, unspecified
CPT/HCPCS: 99283-25

== ENCOUNTER 2020-07-08 07:52 | Emergency (ER) | payer OTHER ==
[2020-07-08 08:04] VITALS: BP 108/66; PULSE 106; TEMP 98.4; BMI 25.6
[2020-07-08 09:56] LABS: HCG,QUALITATIVE URINE Positive
[2020-07-08 12:05] LABS: URINE APPEARANCE CLEAR; URINE BILIRUBIN NEGATIVE (NEGATIVE); URINE COLOR YELLOW; URINE GLUCOSE (UA) NEGATIVE (NEGATIVE); URINE KETONE TRACE (NEGATIVE)
[2020-07-08 12:06] LABS: URINE LEUK ESTERASE 1+ (NEGATIVE); URINE NITRITE NEGATIVE (NEGATIVE); URINE PROTEIN TRACE (NEGATIVE)
== END 2020-07-08 11:55 | disposition home or self-care (01) ==
LOC: JER 07:52
DX: R10.9 Unspecified abdominal pain (principal); Z3A.01 Less than 8 weeks gestation of pregnancy
CPT/HCPCS: 36415; 76801-TC; 81003; 84702; 84703; 87077; 87086; 99284-25

== ENCOUNTER 2022-09-10 14:06 | Emergency (ER) | payer OTHER ==
[2022-09-10 14:14] VITALS: BP 105/71; PULSE 101; RESP 18; TEMP 98.4; BMI 27.4
[2022-09-10] MEDS ORDERED: DEXAMETHASONE 4 MG TABLET (FP) PO ONE (15:32)
[2022-09-10] MEDS ORDERED: ACETAMINOPHEN 500 MG TABLET (FP) PO ONE (15:32)
[2022-09-10] MEDS ORDERED: IBUPROFEN 600 MG TABLET (FP) PO ONE ×2 (15:32→15:51)
[2022-09-10] MEDS ORDERED: DEXAMETHASONE 4 MG TABLET (FP) ONE (15:52)
[2022-09-10] MEDS ORDERED: ACETAMINOPHEN 500 MG TABLET (FP) ONE (15:52)
== END 2022-09-10 15:00 | disposition home or self-care (01) ==
LOC: JER 14:06 → JERFT 14:06
DX: J02.0 Streptococcal pharyngitis (principal)
CPT/HCPCS: 87651; 99283-25

== ENCOUNTER 2022-11-21 18:48 | Emergency (ER) | payer OTHER ==
[2022-11-21 18:56] VITALS: BP 104/70; PULSE 98; RESP 16; TEMP 98.3; BMI 29.2
== END 2022-11-21 22:28 | disposition home or self-care (01) ==
LOC: JERFT 18:48
DX: M79.672 Pain in left foot (principal); R20.8 Other disturbances of skin sensation
CPT/HCPCS: 73630-TC-LT; 99283-25

== ENCOUNTER 2023-07-15 16:21 | Emergency (ER) | payer OTHER ==
[2023-07-15 16:30] VITALS: BP 95/62; PULSE 72; RESP 20; TEMP 98.3; BMI 25.8
[2023-07-15 16:48] LABS: HCG,QUALITATIVE URINE Negative
[2023-07-15 16:49] LABS: EPI CELLS 23 /uL (0-25.1); HYALINE CASTS 0 /uL (0-3.1); PH,URINE 6.5 (5.0-8.0); URINE APPEARANCE CLEAR; URINE BACTERIA 334 /uL (0-1359); URINE BILIRUBIN NEGATIVE (NEGATIVE); URINE COLOR YELLOW; URINE GLUCOSE (UA) NEGATIVE (NEGATIVE); URINE KETONE NEGATIVE (NEGATIVE); URINE LEUK ESTERASE TRACE (NEGATIVE); URINE NITRITE NEGATIVE (NEGATIVE); URINE PROTEIN NEGATIVE (NEGATIVE); URINE RBC 4 /uL (0-23.9); URINE UROBILINOGEN 0.2 mg/dL (0.2-1.0); URINE WBC 16 /uL (0-25.8)
[2023-07-15 18:36] LABS: BASO % 0.2 % (0-2.0); HEMATOCRIT 34.8 % (32.4-45.2); HEMOGLOBIN 11.7 GM/dL (10.7-15.3); LYMPH % 26.8 % (8-40); MCHC 33.5 g/dl (32.0-36.0); MEAN CELL VOLUME 95.4 fl (80-96); MEAN PLT VOLUME 9.2 fl (7.5-11.1); MONO % 6.6 % (3.8-10.2); NEUT % 65.4 % (42.8-82.8); PLATELET COUNT 249 10^3/uL (134-434); RBC 3.64 M/mm3 (3.60-5.2); RDW 13.4 % (11.6-15.6); WHITE BLOOD COUNT 6.9 K/mm3 (4.0-10.0)
[2023-07-15 19:10] LABS: POTASSIUM 3.7 mmol/L (3.5-5.1)
[2023-07-15 19:14] LABS: ALBUMIN 3.8 g/dl (3.4-5.0)
[2023-07-15 19:15] LABS: BLOOD UREA NITROGEN 13.7 mg/dL (7-18)
[2023-07-15 19:17] LABS: CREATININE 0.8 mg/dL (0.55-1.3)
[2023-07-15 19:19] LABS: BILIRUBIN,TOTAL 0.3 mg/dL (0.2-1); TOT PROT 7.3 g/dl (6.4-8.2)
== END 2023-07-15 23:52 | disposition home or self-care (01) ==
LOC: JER 16:21
DX: K59.00 Constipation, unspecified (principal); R10.32 Left lower quadrant pain
CPT/HCPCS: 36415; 74177-TC; 76830-TC; 80053; 81003; 84703; 85025; 87077; 87086; 87491; 87591; 99285-25; Q9967

== ENCOUNTER 2024-06-24 16:39 | Emergency (ER) | payer OTHER ==
[2024-06-24 16:55] VITALS: PULSE 72; RESP 18; TEMP 98.1; BMI 29.2
[2024-06-24 19:20] VITALS: BP 82/44
[2024-06-24] MEDS ORDERED: IBUPROFEN 600 MG TABLET (FP) PO ONE ×2 (19:32→19:37)
== END 2024-06-24 19:42 | disposition home or self-care (01) ==
LOC: JERFT 16:39 → JER 16:39 → JERFT 19:42
DX: S63.91XA Sprain of unspecified part of right wrist and hand, initial encounter (principal); W23.0XXA Caught, crushed, jammed, or pinched between moving objects, initial encounter
CPT/HCPCS: 73130-TC-RT-FY; 99283-25